=== PATIENT | male | born 1995 | race Caucasian/White ===

== ENCOUNTER 2017-08-29 22:24 | Emergency (ER) | payer OTHER ==
[~2017-08-29] VITALS: Ht 175.3 cm; Wt 75.7 kg
[~2017-08-29 22:24] MED LIST: SERT50TA PO
[2017-08-29] MEDS ORDERED: ONDANSETRON 2MG/ML, 2ML ONE (22:55)
[2017-08-29] MEDS ORDERED: THIAMINE 100MG TABLET PO ONE (23:00)
[2017-08-29] MEDS ORDERED: ONDANSETRON 2MG/ML, 2ML IVPush ONE (23:00)
[2017-08-29] MEDS ORDERED: LORazepam 2 MG/ML, 1ML IVPush PRN (23:00)
[2017-08-29] MEDS ORDERED: SODIUM CHLORIDE FLUSH 10ML SYR IVF ONE (23:00)
[2017-08-29] MEDS ORDERED: SODIUM CHLORIDE 0.9% 1,000ML IVBOLUS ONE (23:00)
[2017-08-29 23:09] LABS: HEMATOCRIT 47.3 % (39.2-51.8); HEMOGLOBIN 16.3 g/dL (13.7-18.0); WHITE BLOOD COUNT 8.1 x10^3/uL (3.4-10)
[2017-08-29] MEDS ORDERED: LORazepam 2 MG/ML, 1ML ONE (23:15)
[2017-08-29 23:16] LABS: ASPARTATE AMINO TRANSFERASE 33 U/L (15-37); BLOOD UREA NITROGEN 11 mg/dL (7-18)
[2017-08-30] MEDS ORDERED: THIAMINE 100MG TABLET ONE (00:01)
[2017-08-30 00:35] VITALS: BP 135/88
== END 2017-08-30 00:37 | disposition home or self-care (01) ==
LOC: ED 23:58
DX: F10.239 Alcohol dependence with withdrawal, unspecified (principal)
CPT/HCPCS: 36415; 80053; 80307; 85025; 93005; 96361; 96374; 96375; 99285; J2060; J2405; J7030; G0479

== ENCOUNTER 2018-04-13 21:19 | Emergency (ER) | payer OTHER ==
[~2018-04-13] VITALS: Ht 175.3 cm; Wt 90.0 kg
[2018-04-13 21:29] VITALS: BP 139/90
== END 2018-04-14 00:07 | disposition home or self-care (01) ==
LOC: ED 23:59
DX: F10.220 Alcohol dependence with intoxication, uncomplicated (principal)
CPT/HCPCS: 99281

== ENCOUNTER 2018-08-03 13:53 | Emergency (ER) | payer OTHER ==
[~2018-08-03] VITALS: Ht 175.3 cm; Wt 75.0 kg
[2018-08-03 13:58] VITALS: BP 138/98
[2018-08-03] MEDS ORDERED: ONDANSETRON ODT 4 MG ONE (14:01)
[2018-08-03] MEDS ORDERED: ONDANSETRON ODT 4 MG PO ONE (14:30)
[2018-08-03] MEDS ORDERED: THIAMINE 100MG TABLET PO ONE (14:30)
[2018-08-03] MEDS ORDERED: THIAMINE 100MG TABLET ONE (14:42)
== END 2018-08-03 16:24 | disposition home or self-care (01) ==
LOC: ED 16:00
DX: F10.120 Alcohol abuse with intoxication, uncomplicated (principal); F32.9 Major depressive disorder, single episode, unspecified; F41.1 Generalized anxiety disorder; Z90.89 Acquired absence of other organs
CPT/HCPCS: 36415; 80047; 99283; Q0162

== ENCOUNTER 2018-08-03 20:12 | Emergency (ER) | payer OTHER ==
[~2018-08-03] VITALS: Ht 175.3 cm; Wt 72.7 kg
[2018-08-03 20:44] LABS: BASOPHILS # (AUTO) 0.05 x10^3/uL (0-0.1); BASOPHILS % (AUTO) 0 % (0-1); EOSINOPHILS % (AUTO) 0 % (1-7); LYMPHOCYTES # (AUTO) 2.09 x10^3/uL (1-3.4); LYMPHOCYTES % (AUTO) 16 % (22-44); MD NO; MEAN CORPUSCULAR HEMOGLOBIN 31.2 pg (27.5-34.5); MEAN CORPUSCULAR VOLUME 89.2 fL (81-97); MONOCYTES % (AUTO) 9 % (2-9); NEUTROPHILS # (AUTO) 10.09 x10^3/uL (1.8-6.8); NEUTROPHILS % (AUTO) 75 % (42-75); PLATELET COUNT 341 x10^3/uL (130-400); RED BLOOD COUNT 5.57 x10^6/uL (4.38-5.82); RED CELL DISTRIBUTION WIDTH 12.5 % (9.4-14.8)
[2018-08-03 20:53] LABS: ALANINE AMINOTRANSFERASE 41 U/L (12-78); ALBUMIN 4.1 g/dL (3.4-5.0); ANION GAP 11 mmol/L (5-15); CALCIUM 8.2 mg/dL (8.5-10.1); CHLORIDE 110 mmol/L (98-107); CREATININE 0.81 mg/dL (0.7-1.3)
[2018-08-03 20:55] LABS: ALKALINE PHOSPHATASE 89 U/L (45-117); BILIRUBIN,TOTAL 0.7 mg/dL (0.2-1.0); TOTAL PROTEIN 7.8 g/dL (6.4-8.2)
[2018-08-03 20:57] LABS: ACETAMINOPHEN < 2 mcg/mL (10-30); SALICYLATE LEVEL < 1.7 mg/dL (2.8-20.0)
[2018-08-04 00:01] LABS: AMPHETAMINE SCREEN, URINE Negative (Negative); BARBITURATE SCREEN, URINE Negative (Negative); BENZODIAZEPINE SCREEN, URINE Negative (Negative); CANNABINOID SCREEN, URINE Negative (Negative); COCAINE SCREEN, URINE Negative (Negative); METHADONE SCREEN, URINE Negative (Negative); OPIATE SCREEN, URINE Negative (Negative)
[2018-08-04 03:37] VITALS: BP 105/71
== END 2018-08-04 03:39 | disposition home or self-care (01) ==
LOC: ED 08-04 00:15
DX: F10.120 Alcohol abuse with intoxication, uncomplicated (principal); G31.2 Degeneration of nervous system due to alcohol
CPT/HCPCS: 36415; 70450; 80053; 80307; 80329; 85025; 93005; 99285; G0480

== ENCOUNTER 2018-10-22 18:35 | Emergency (ER) | payer OTHER ==
[~2018-10-22] VITALS: Ht 175.3 cm; Wt 78.5 kg
[2018-10-22 19:16] LABS: BASOPHILS # (AUTO) 0.07 x10^3/uL (0-0.1); BASOPHILS % (AUTO) 1 % (0-1); EOSINOPHILS # (AUTO) 0.03 x10^3/uL (0-0.4); EOSINOPHILS % (AUTO) 0 % (1-7); LYMPHOCYTES # (AUTO) 2.03 x10^3/uL (1-3.4); LYMPHOCYTES % (AUTO) 17 % (22-44); MD NO; MEAN CORPUSCULAR HEMOGLOBIN 31.3 pg (27.5-34.5); MEAN CORPUSCULAR HGB CONC 34.6 g/dL (33.2-36.2); MEAN CORPUSCULAR VOLUME 90.6 fL (81-97); MEAN PLATELET VOLUME 6.6 fL (7.4-10.4); MONOCYTES # (AUTO) 1.08 x10^3/uL (0.2-0.8); MONOCYTES % (AUTO) 9 % (2-9); NEUTROPHILS # (AUTO) 8.79 x10^3/uL (1.8-6.8); NEUTROPHILS % (AUTO) 73 % (42-75); PLATELET COUNT 269 x10^3/uL (130-400); RED BLOOD COUNT 5.29 x10^6/uL (4.38-5.82); RED CELL DISTRIBUTION WIDTH 12.9 % (9.4-14.8)
[2018-10-22 19:27] LABS: ALANINE AMINOTRANSFERASE 32 U/L (12-78); ALBUMIN 4.4 g/dL (3.4-5.0); ANION GAP 12 mmol/L (5-15); CALCIUM 8.9 mg/dL (8.5-10.1); CHLORIDE 102 mmol/L (98-107); CREATININE 1.01 mg/dL (0.7-1.3)
[2018-10-22 19:30] LABS: ALKALINE PHOSPHATASE 93 U/L (45-117); BILIRUBIN,TOTAL 1.1 mg/dL (0.2-1.0)
[2018-10-22] MEDS ORDERED: METOCLOPRAMIDE 5 MG/ML, 2ML IVPush ONE (19:30)
[2018-10-22] MEDS ORDERED: DIPHENHYDRAMINE 50 MG/ML, 1ML IVPush ONE (19:30)
[2018-10-22] MEDS ORDERED: TRAZ50TA66 PO (19:34)
[2018-10-22] MEDS ORDERED: METOCLOPRAMIDE 5 MG/ML, 2ML ONE (19:50)
[2018-10-22] MEDS ORDERED: DIPHENHYDRAMINE 50 MG/ML, 1ML ONE (19:50)
[2018-10-22 20:57] VITALS: BP 137/86
[2018-10-22] MEDS ORDERED: ACETAMINOPHEN 500 MG TABLET ONE (21:10)
[2018-10-22] MEDS ORDERED: ACETAMINOPHEN 500 MG TABLET PO ONE (21:30)
== END 2018-10-22 21:39 | disposition home or self-care (01) ==
LOC: ED 19:33
DX: R11.0 Nausea (principal)
CPT/HCPCS: 36415; 80053; 83690; 85025; 93005; 96374; 96375; 99284; J1200; J2765

== ENCOUNTER 2018-10-26 16:49 | Emergency (ER) | payer OTHER ==
[~2018-10-26] VITALS: Ht 175.3 cm; Wt 77.0 kg
[~2018-10-26 16:49] MED LIST changes: +TRAZ50TA66 PO
[2018-10-26 17:20] LABS: BASOPHILS # (AUTO) 0.03 x10^3/uL (0-0.1); BASOPHILS % (AUTO) 0 % (0-1); EOSINOPHILS # (AUTO) 0.01 x10^3/uL (0-0.4); EOSINOPHILS % (AUTO) 0 % (1-7); LYMPHOCYTES # (AUTO) 1.66 x10^3/uL (1-3.4); LYMPHOCYTES % (AUTO) 16 % (22-44); MD NO; MEAN CORPUSCULAR HEMOGLOBIN 31.2 pg (27.5-34.5); MEAN CORPUSCULAR HGB CONC 33.9 g/dL (33.2-36.2); MEAN CORPUSCULAR VOLUME 91.9 fL (81-97); MEAN PLATELET VOLUME 6.6 fL (7.4-10.4); MONOCYTES # (AUTO) 0.77 x10^3/uL (0.2-0.8); MONOCYTES % (AUTO) 8 % (2-9); NEUTROPHILS # (AUTO) 7.81 x10^3/uL (1.8-6.8); NEUTROPHILS % (AUTO) 76 % (42-75); PLATELET COUNT 321 x10^3/uL (130-400); RED BLOOD COUNT 5.49 x10^6/uL (4.38-5.82)
[2018-10-26] MEDS ORDERED: FAMOTIDINE 20 MG TABLET ONE (17:21)
[2018-10-26] MEDS ORDERED: ONDANSETRON ODT 4 MG ONE (17:21)
[2018-10-26] MEDS ORDERED: LORazepam 1MG TABLET ONE (17:22)
[2018-10-26] MEDS ORDERED: ONDANSETRON ODT 4 MG PO ONE (17:30)
[2018-10-26] MEDS ORDERED: LORazepam 1MG TABLET PO ONE (17:30)
[2018-10-26] MEDS ORDERED: FAMOTIDINE 20 MG TABLET PO ONE (17:30)
[2018-10-26 17:33] LABS: ALANINE AMINOTRANSFERASE 30 U/L (12-78); ALBUMIN 4.5 g/dL (3.4-5.0); ANION GAP 13 mmol/L (5-15); CALCIUM 8.6 mg/dL (8.5-10.1); CHLORIDE 103 mmol/L (98-107)
[2018-10-26 17:35] LABS: ALKALINE PHOSPHATASE 94 U/L (45-117); BILIRUBIN,TOTAL 0.4 mg/dL (0.2-1.0); CREATININE 0.86 mg/dL (0.7-1.3); TOTAL PROTEIN 8.3 g/dL (6.4-8.2)
[2018-10-26 17:40] LABS: MICROSCOPIC AUTO
[2018-10-26 17:43] LABS: CULTURE INDICATED? NO
[2018-10-26 18:07] VITALS: BP 150/85
== END 2018-10-26 18:58 | disposition home or self-care (01) ==
LOC: ED 16:52
DX: F10.129 Alcohol abuse with intoxication, unspecified (principal); F41.9 Anxiety disorder, unspecified; F32.9 Major depressive disorder, single episode, unspecified
CPT/HCPCS: 36415; 80053; 80307; 81001; 83690; 85025; 99284; Q0162

== ENCOUNTER 2019-01-17 07:05 | Emergency (ER) | payer OTHER ==
[~2019-01-17] VITALS: Ht 175.3 cm; Wt 81.4 kg
--- NOTE | 2019-01-17 07:15 | NUR ---
PT PRESENTS TO ED FOR ETOH WITHDRAWL AFTER BEING SOBERX 10W. NO MEDICAL HX OR MEDICATIONS. PROVIDER AT BEDSIDE
[2019-01-17] MEDS ORDERED: ONDANSETRON ODT 4 MG PO ONE (07:30)
[2019-01-17] MEDS ORDERED: THIAMINE 100MG TABLET PO ONE (07:30)
[2019-01-17] MEDS ORDERED: ATOR-2 PO (07:37)
[2019-01-17] MEDS ORDERED: DICL100G19 TP (07:37)
[2019-01-17] MEDS ORDERED: LISI40TA PO (07:37)
[2019-01-17] MEDS ORDERED: HYDR25TA6 PO (07:37)
[2019-01-17] MEDS ORDERED: GABA400C PO (07:37)
[2019-01-17] MEDS ORDERED: HYDR-3241 PO (07:37)
[2019-01-17] MEDS ORDERED: PROM25TA10 PO (07:37)
[2019-01-17] MEDS ORDERED: ASPI-650 PO (07:37)
[2019-01-17] MEDS ORDERED: ONDANSETRON ODT 4 MG ONE (07:42)
[2019-01-17] MEDS ORDERED: THIAMINE 100MG TABLET ONE (07:42)
[2019-01-17 08:10] LABS: BASOPHILS # (AUTO) 0.03 x10^3/uL (0-0.1); BASOPHILS % (AUTO) 0 % (0-1); EOSINOPHILS # (AUTO) 0.02 x10^3/uL (0-0.4); EOSINOPHILS % (AUTO) 0 % (1-7); LYMPHOCYTES # (AUTO) 1.67 x10^3/uL (1-3.4); LYMPHOCYTES % (AUTO) 24 % (22-44); MD NO; MEAN CORPUSCULAR HEMOGLOBIN 30.7 pg (27.5-34.5); MEAN CORPUSCULAR HGB CONC 33.8 g/dL (33.2-36.2); MEAN CORPUSCULAR VOLUME 90.8 fL (81-97); MEAN PLATELET VOLUME 6.4 fL (7.4-10.4); MONOCYTES # (AUTO) 0.69 x10^3/uL (0.2-0.8); MONOCYTES % (AUTO) 10 % (2-9); NEUTROPHILS # (AUTO) 4.45 x10^3/uL (1.8-6.8); NEUTROPHILS % (AUTO) 65 % (42-75); PLATELET COUNT 281 x10^3/uL (130-400); RED BLOOD COUNT 5.28 x10^6/uL (4.38-5.82); RED CELL DISTRIBUTION WIDTH 12.6 % (9.4-14.8)
[2019-01-17 08:15] VITALS: BP 147/95
[2019-01-17 08:18] LABS: ALANINE AMINOTRANSFERASE 60 U/L (12-78); ALBUMIN 4.2 g/dL (3.4-5.0); ANION GAP 8 mmol/L (5-15); CALCIUM 7.8 mg/dL (8.5-10.1); CHLORIDE 107 mmol/L (98-107); CREATININE 0.83 mg/dL (0.7-1.3)
[2019-01-17 08:21] LABS: ALKALINE PHOSPHATASE 96 U/L (45-117); BILIRUBIN,TOTAL 0.6 mg/dL (0.2-1.0); TOTAL PROTEIN 7.4 g/dL (6.4-8.2)
== END 2019-01-17 09:07 | disposition home or self-care (01) ==
LOC: ED 08:55
DX: F10.120 Alcohol abuse with intoxication, uncomplicated (principal); F41.1 Generalized anxiety disorder; F32.9 Major depressive disorder, single episode, unspecified
CPT/HCPCS: 36415; 80053; 80307; 85025; 99283; Q0162